=== PATIENT | female | born 1980 | race Caucasian/White ===

== ENCOUNTER 2017-05-20 22:41 | Emergency (ER) | payer OTHER ==
[~2017-05-20] VITALS: Ht 165.1 cm; Wt 124.0 kg
[2017-05-20 23:02] LABS: GLUCOSE,POINT OF CARE 342 MG/DL (70-110)
[2017-05-20 23:24] LABS: APPEARANCE,URINE CLOUDY (CLEAR); GLUCOSE, URINE (UA) >=1000 mg/dL (NEGATIVE); KETONES,URINE NEGATIVE (NEGATIVE); LEUKOCYTE ESTERASE ,URINE MODERATE (NEGATIVE); OCCULT BLOOD,URINE LARGE (NEGATIVE); PROTEIN,URINE POS 1+ (NEGATIVE)
[2017-05-20 23:27] LABS: ADD UA MICROSCOPIC YES
[2017-05-20 23:37] LABS: SQUAMOUS EPITHELIAL CELL,UR Moderate /LPF (None Seen)
[2017-05-21] MEDS ORDERED: PHENAZOPYRIDINE HCL 100 MG TABLET PO ONE (00:30)
[2017-05-21] MEDS ORDERED: CEPHALEXIN MONOHYDRATE 500 MG CAPSULE PO ONE (00:30)
[2017-05-21] MEDS ORDERED: ONDANSETRON HCL 4 MG TABLET PO ONE (00:30)
[2017-05-21 00:44] VITALS: BP 135/74
== END 2017-05-21 00:56 | disposition home or self-care (01) ==
LOC: EMS 22:43
DX: N39.0 Urinary tract infection, site not specified (principal); E11.65 Type 2 diabetes mellitus with hyperglycemia; E78.00 Pure hypercholesterolemia, unspecified; I10 Essential (primary) hypertension; F17.210 Nicotine dependence, cigarettes, uncomplicated; F12.90 Cannabis use, unspecified, uncomplicated
CPT/HCPCS: 81001; 81025; 82962; 87077; 87086; 87186; 99284; 99406; Q0162